=== PATIENT | female | born 1955 | race Caucasian/White ===

== ENCOUNTER 2021-09-05 07:26 | Emergency (ER) | payer OTHER ==
[~2021-09-05] VITALS: Ht 162.6 cm; Wt 58.1 kg
[2021-09-05 08:22] LABS: BASOPHIL 1.1 % (0-2); EOSINOPHIL 1.6 % (0-7); HCT 43.8 % (37.0-47.0); HGB 14.2 g/dl (12.5-16.0); LYMPHOCYTE 30.9 % (15-48); MCH 29.9 pg (25.0-31.0); MCHC 32.4 g/dL (32.0-36.0); MCV 92.2 fL (78.0-100.0); MPV 8.9 fL (6.0-9.5); NEUTROPHIL 54.9 % (41-80); NRBC 0; PLT 267 K/uL (150-400); RBC 4.75 M/uL (4.20-5.40); RDW 12.8 % (11.5-14.0); WBC 6.3 K/uL (4.0-10.5)
[2021-09-05 08:48] LABS: ALBUMIN 3.7 g/dL (3.4-5.0); BILIRUBIN - TOTAL 0.4 mg/dL (0.2-1.0); BUN/CREAT RATIO (CALC) 26.2 RATIO; CREATININE 0.8 mg/dL (0.51-0.95); GLOBULIN (CALCULATION) 3.1 g/dL; TOTAL PROTEIN 6.8 g/dL (6.4-8.2)
== END 2021-09-05 09:37 | disposition home or self-care (01) ==
LOC: FER 07:26
PROVIDERS: Emergency Medicine
DX: S51.811A Laceration without foreign body of right forearm, initial encounter (principal); I10 Essential (primary) hypertension; W10.9XXA Fall (on) (from) unspecified stairs and steps, initial encounter; Y92.009 Unspecified place in unspecified non-institutional (private) residence as the place of occurrence of the external cause
CPT/HCPCS: 36415; 70450; 72220; 73620; 80053; 84484; 85025; 93005